=== PATIENT | male | born 1970 | race Caucasian/White ===

== ENCOUNTER 2017-12-29 08:11 | Emergency (ER) | payer SELFPAY ==
--- NOTE | 2017-12-29 08:11 | DT_ITS ---
This patient was seen during an EMR downtime December 25, 2017 - January 01, 2018. This patient may have a combination of paper and electronic documentation or all paper documentation. All documentation is viewable within the e-chart portion of [facility] for each patient visit.
[2018-01-01 15:52] LABS: Absolute Neutrophil Count 2.9 X10^3/uL (2.0-7.7); Eosinophils% 3.5 % (0-5); Hematocrit 46.1 % (40-54); Lymphocyte # 3.92 X10^3/ul (4.0); Lymphocyte % 48.9 % (19-41); Mean Corp Hgb Conc 34.7 g/gl (32-36); Mean Corpuscular Hgb 32.9 pg (27.0-32.0); Mean Corpuscular Volume 94.9 fL (80-94); Mean Platelet Vol. 10.4 fl (6.2-12.0); Monocyte% 10.9 % (0-10); Neutrophil # 2.85 X10^3/uL (2.7-7.7); Neutrophil % 35.6 % (47-70); POSITIVE COUNT NO; POSITIVE DIFFERENTIAL NO; POSITIVE MORPHOLOGY NO; Platelet Count 229 K/mm3 (150-450); RBC Distribution Width CV 13.8 % (11.6-14.6); RBC Distribution Width SD 46.7 fl (35.1-43.9); Red Blood Count 4.86 M/mm3 (4.6-6.2)
[2018-01-01 15:53] LABS: Absolute Lymphocyte Count 3.92 X10^3/ul (0.83-4.51); Basophil# 0.08 X10^3/uL; Eosinophil# 0.28 X10^3/uL; Monocyte# 0.87 X10^3/uL
[2018-01-01 21:29] LABS: Anion Gap 10 (5-15); BUN 10 mg/dL (7-18); BUN/Creat Ratio 11.8 RATIO (10-20); Calcium,Total 8.5 mg/dL (8.5-10.1); Chloride 111 mmol/L (98-107); Creatinine, Serum 0.85 mg/dL (0.70-1.30); EST Glomerular Filtration Rate 102 mL/min (>60); Est Glom Filt Rate - Afr Amer 124 mL/min (>60); Glucose 107 mg/dL (74-106); Potassium 3.8 mmol/L (3.5-5.1); Sodium Level 144 mmol/L (136-145)
== END 2017-12-29 09:15 | disposition home or self-care (01) ==
LOC: ED 12:58
PROVIDERS: Emergency Provider Emergency Medicine
DX: R42 Dizziness and giddiness (principal); E86.0 Dehydration; R03.0 Elevated blood-pressure reading, without diagnosis of hypertension; F17.200 Nicotine dependence, unspecified, uncomplicated
CPT/HCPCS: 80048; 85025; 99284; A4216